=== PATIENT | female | born 1930 | race Caucasian/White ===

== ENCOUNTER → 2016-10-15 | Outpatient (CLI) | payer MEDICARE, OTHER ==
[~2016-10-15] MED LIST: ACIDOPHILU1 Billion; ACIDOPHILUS1 EAC2 PO; ASPIRIN E.C. 8181 M1 PO; ASPIRIN E.C. 8181 MG PO; BONIVA150 MG PO; CALCIUM 600 MG-1 TAB PO; CALCIUM1 CAP PO; COLACE 100100 MG/CAP PO; COLACE100 M1 PO; DUO-KAPS1 CAP PO; ESTRACE0.1 MG/GM VG; ESTRADIOL1 MG PO; FLAGYL500 M1 PO; LASIX 40MG TABL40 MG PO; LASIX40 MG PO; LEADER CRANBERR1 TAB PO; LISINOPRIL10 MG PO; LISINOPRIL20 MG PO; METAMUCIL0.52 G1 PO; METAMUCIL1 PDR PO; OMEGA-31 SGL PO; OMEGA-3100 MG PO; RANITIDINE HCL150 M1 PO; SYNTHROID0.05 MG PO; VANCOCIN125 MG PO; VANCOMYCIN HCL5 GM PO; VITAMIN B50 B-C1 TAB PO; VITAMIN D32000 I1 PO; VITAMIN D34000 UNIT PO; VITAMIN E100 UNI2 PO; ZOFRAN ODT8 M1 PO
== END ==
LOC: RAD 13:21
DX: R05 Cough (principal)

== ENCOUNTER → 2017-02-26 | Outpatient (CLI) | payer MEDICARE, OTHER ==
[2016-03-22 11:12] VITALS: BP 106/47
== END ==
LOC: LAB 14:57
DX: I10 Essential (primary) hypertension (principal); E03.9 Hypothyroidism, unspecified; E11.8 Type 2 diabetes mellitus with unspecified complications

== ENCOUNTER → 2017-12-17 | Outpatient (CLI) | payer MEDICARE, OTHER ==
[2016-03-22 11:12] VITALS: BP 106/47
== END ==
LOC: RAD 14:08
DX: M48.07 Spinal stenosis, lumbosacral region (principal); M41.86 Other forms of scoliosis, lumbar region; M53.3 Sacrococcygeal disorders, not elsewhere classified; M25.562 Pain in left knee; M25.552 Pain in left hip

== ENCOUNTER → 2018-02-19 | Outpatient (CLI) | payer MEDICARE, OTHER ==
[2016-03-22 11:12] VITALS: BP 106/47
[2018-02-19 10:52] LABS: EOS % 0.7 % (1.0-5.0); HEMATOCRIT 42.3 % (37.0-47.0); HEMOGLOBIN 13.7 g/dL (12.5-16.0); LYMPH# 1.3 (1.50-4.00); MEAN CELL VOLUME 93 fl (78-100); MEAN CORPUSCULAR HEMOGLOBIN 30 pg (27-31); MEAN CORPUSCULAR HGB CONC 32 g/dL (33-37); MEAN PLATELET VOLUME 8.8 fl (7.4-10.4); MONO # 0.5 (0.20-0.80); NEU # 3.9 (1.40-6.50); PLATELET COUNT 259 K/mm3 (130-400); RED BLOOD COUNT 4.55 M/mm3 (4.10-5.30); RED CELL DISTRIBUTION WIDTH 13.9 % (11.5-14.5); WHITE BLOOD COUNT 5.7 K/mm3 (4.8-10.8)
[2018-02-19 11:11] LABS: ALBUMIN 3.9 g/dL (3.5-5.0); BUN/CREATININE RATIO 26.8 (6.0-26.0); POTASSIUM 4.7 mmol/L (3.6-5.0); TOTAL BILIRUBIN 0.5 mg/dL (0.2-1.3); TOTAL PROTEIN 6.7 g/dL (6.3-8.2)
== END ==
LOC: LAB 10:35
PROVIDERS: Nurse Practitioner Family
DX: I10 Essential (primary) hypertension (principal); E11.9 Type 2 diabetes mellitus without complications; E03.9 Hypothyroidism, unspecified; G60.8 Other hereditary and idiopathic neuropathies

== ENCOUNTER → 2018-03-14 | Outpatient (CLI) | payer MEDICARE, OTHER ==
[2016-03-22 11:12] VITALS: BP 106/47
[2018-03-14 12:56] LABS: URINE APPEARANCE HAZY; URINE COLOR YELLOW; URINE PROTEIN(semi-quant) TRACE mg/dL (NEGATIVE)
[2018-03-14 12:57] LABS: URINE BILIRUBIN NEGATIVE (NEGATIVE); URINE BLOOD TRACE (NEGATIVE); URINE GLUCOSE NEGATIVE (NEGATIVE); URINE KETONE NEGATIVE (NEGATIVE); URINE LEUKOCYTE ESTERASE 2+ (NEGATIVE); URINE NITRATE NEGATIVE (NEGATIVE); URINE UROBILINOGEN NORMAL (NORMAL); URINE WBC >50 /hpf (0-3)
== END ==
LOC: LAB 11:30
PROVIDERS: Family Medicine
DX: R35.0 Frequency of micturition (principal)

== ENCOUNTER → 2018-06-19 | Outpatient (CLI) | payer MEDICARE, OTHER ==
[2016-03-22 11:12] VITALS: BP 106/47
[2018-06-19 13:55] LABS: EOS % 0.3 % (1.0-5.0); HEMATOCRIT 42.4 % (37.0-47.0); HEMOGLOBIN 13.9 g/dL (12.5-16.0); LYMPH# 1.4 (1.50-4.00); MEAN CELL VOLUME 94 fl (78-100); MEAN CORPUSCULAR HEMOGLOBIN 31 pg (27-31); MEAN CORPUSCULAR HGB CONC 33 g/dL (33-37); MONO # 0.6 (0.20-0.80); PLATELET COUNT 271 K/mm3 (130-400); RED BLOOD COUNT 4.53 M/mm3 (4.10-5.30); RED CELL DISTRIBUTION WIDTH 13.1 % (11.5-14.5)
[2018-06-19 15:05] LABS: ERYTHROCYTE SEDIMENTATION RATE 15 mm/hr (0-30)
== END ==
LOC: LAB 13:43
PROVIDERS: Family Medicine
DX: R10.9 Unspecified abdominal pain (principal); R14.0 Abdominal distension (gaseous); R19.7 Diarrhea, unspecified

== ENCOUNTER → 2018-06-20 | Outpatient (CLI) | payer MEDICARE, OTHER ==
[2016-03-22 11:12] VITALS: BP 106/47
== END ==
LOC: LAB 09:17
DX: R19.7 Diarrhea, unspecified (principal)

== ENCOUNTER → 2018-07-14 | Outpatient (CLI) | payer MEDICARE, OTHER ==
[2016-03-22 11:12] VITALS: BP 106/47
== END ==
LOC: RAD 10:25
DX: R09.89 Other specified symptoms and signs involving the circulatory and respiratory systems (principal); I10 Essential (primary) hypertension; R42 Dizziness and giddiness; E03.9 Hypothyroidism, unspecified; R19.7 Diarrhea, unspecified

== ENCOUNTER → 2019-02-24 | Outpatient (CLI) | payer MEDICARE, OTHER ==
[2016-03-22 11:12] VITALS: BP 106/47
[2019-02-24 12:08] LABS: POTASSIUM 4.6 mmol/L (3.5-5.1)
[2019-02-24 12:09] LABS: CALCIUM 9.8 mg/dL (8.3-10.5)
== END ==
LOC: LAB 11:46
PROVIDERS: Physician Assistant
DX: E03.9 Hypothyroidism, unspecified (principal)